=== PATIENT | male | born 1960 | race Caucasian/White ===

== ENCOUNTER 2025-03-07 07:49 | Emergency (ER) | payer MEDICAID ==
[~2025-03-07] VITALS: Ht 180.3 cm; Wt 79.0 kg
[2025-03-07 07:53] VITALS: TEMP 97.7
[2025-03-07 08:09] LABS: BASOPHILS # (AUTO) 0.1 X10'3 (0-0.2); BASOPHILS % (AUTO) 0.9 % (0-1); EOSINOPHILS # (AUTO) 0.2 X10'3 (0-0.9); HEMATOCRIT 30.9 % (42.0-52.0); LYMPHOCYTES # (AUTO) 1.2 X10'3 (1.1-4.8); LYMPHOCYTES % (AUTO) 18.7 % (21-51); MEAN CORPUSCULAR HEMOGLOBIN 27.9 PG (27.0-31.0); MEAN CORPUSCULAR HGB CONC 32.4 g/dL (33.0-36.5); MEAN CORPUSCULAR VOLUME 86.1 FL (78-98); MEAN PLATELET VOLUME 7.6 FL (7.4-10.4); MONOCYTES # (AUTO) 0.6 X10'3 (0-0.9); MONOCYTES % (AUTO) 10.2 % (2-12); NEUTROPHILS # (AUTO) 4.1 X10'3 (1.8-7.7); NEUTROPHILS % (AUTO) 66.2 % (42-75); PLATELET COUNT 372 X10'3 (140-440); RED BLOOD COUNT 3.59 X10'6 (4.70-6.10); RED CELL DISTRIBUTION WIDTH 13.5 % (11.5-14.5); WHITE BLOOD COUNT 6.2 X10'3 (4.5-11.0)
[2025-03-07 08:22] LABS: ALANINE AMINOTRANSFERASE 18 U/L (12-78); ALBUMIN 3.5 G/DL (3.4-5.0); ALKALINE PHOSPHATASE 114 IU/L (46-116); ANION GAP 7 (8-16); ASPARTATE AMINO TRANSFERASE 13 U/L (10-37); BILIRUBIN,TOTAL 0.4 MG/DL (0.1-1.0); BLOOD UREA NITROGEN 13 MG/DL (7-18); BUN/CREATININE RATIO 12.9 (10.0-20.0); CALCIUM 8.6 MG/DL (8.5-10.1); CHLORIDE 104 MMOL/L (99-107); CREATININE 1.01 MG/DL (0.60-1.10); GLUCOSE 92 MG/DL (70-104); POTASSIUM 3.9 MMOL/L (3.5-5.1); SODIUM 140 MMOL/L (135-145); TOTAL CARBON DIOXIDE 29.3 MMOL/L (24-32); eCRCL 81 ML/MIN; eGFR 75 ML/MIN
[2025-03-07 08:30] LABS: PRO BRAIN NATRIURETIC PEPTIDE 1894 PG/ML (0-125)
[2025-03-07 08:49] VITALS: BP 98/64; PULSE 63; RESP 17; O2SAT 99
[2025-03-07] MEDS: methylnaltrexone br 12mg/0.6ml inj***SubQ only SQ ONE (08:49)
== END 2025-03-07 09:03 | disposition home or self-care (01) ==
LOC: ER 07:51
DX: R55 Syncope and collapse (principal); K59.00 Constipation, unspecified; Z88.0 Allergy status to penicillin
CPT/HCPCS: 36415; 71045; 80053; 83880; 84484; 85025; 93005; 96372; 99285; J2212; 94760

== ENCOUNTER 2025-03-13 11:58 | Emergency (ER) | payer MEDICAID ==
[~2025-03-13] VITALS: Ht 180.3 cm; Wt 79.5 kg
[2025-03-13] MEDS: methylnaltrexone br 12mg/0.6ml inj***SubQ only SQ ONE (17:31)
[2025-03-13] MEDS ORDERED: GOLYS PO (17:47)
[2025-03-13 17:53] VITALS: BP 106/68; PULSE 62; RESP 16; TEMP 98.1; O2SAT 99
== END 2025-03-13 17:55 | disposition home or self-care (01) ==
LOC: ER 11:58
DX: K59.03 Drug induced constipation (principal); T40.2X5A Adverse effect of other opioids, initial encounter; Z88.0 Allergy status to penicillin; Y92.89 Other specified places as the place of occurrence of the external cause
CPT/HCPCS: 74018; 96372; 99283; J2212

== ENCOUNTER 2025-06-11 12:36 | Emergency (ER) | payer MEDICAID ==
[~2025-06-11] VITALS: Ht 180.3 cm; Wt 63.2 kg
[~2025-06-11 12:36] MED LIST: GOLYS PO
[2025-06-11 12:39] VITALS: TEMP 98.2
--- NOTE | 2025-06-11 12:46 | ELECTROCARDIOGRAPH REPORT ---
[facility] Test Date: 2025-06-11 Test Time: 12:43:55 Pat Name: BRETT WASHBURN Department: EMERGENCY ROOM Room: Gender: M General Office Associate: : 1960 Requested By: BARRIE CARRIZALES Order Number: [id number] Reading MD: Dr. Sharif Harding Measurements Intervals [place] Rate: 79 P: 42 [place]: 173 QRS: 25 QRSD: 99 T: 41 QT: 377 QTc: 433 Interpretive Statements Sinus rhythm Probable left atrial enlargement Borderline ST elevation, anterior leads Electronically Signed On 06-12-2025 18:21:[address] Sharif Harding Please click the below link to view image of tracing.
[2025-06-11 12:58] LABS: MEAN PLATELET VOLUME 8.6 FL (7.4-10.4); RED CELL DISTRIBUTION WIDTH 16.4 % (11.5-14.5)
--- NOTE | 2025-06-11 13:03 | RADIOLOGY REPORT ---
CHEST RADIOGRAPH Indication: CP Technique: Single frontal view of the chest was obtained Comparison: DI CHEST,SINGLE VIEW on DOS: 03/07/25 FINDINGS: Lines and Tubes: None Lungs: No focal consolidation. Pleura: No effusion. No pneumothorax. Cardiomediastinal contours: Unremarkable Bones: No acute osseous abnormality. IMPRESSION: No acute cardiopulmonary disease.
[2025-06-11 13:31] LABS: CREATININE 0.92 MG/DL (0.60-1.10); PRO BRAIN NATRIURETIC PEPTIDE 392 PG/ML (0-125); TOTAL CARBON DIOXIDE 27.0 MMOL/L (24-32); eCRCL 74 ML/MIN; eGFR 83 ML/MIN
--- NOTE | 2025-06-11 14:18 | Physician Documentation ---
History of Present Illness ~ General Chief Complaint: See Chief Complaint Stated Complaint: HEART VALVE COMPLICATIONS PER DOC Time Seen by MD: 13:37 Primary Medical Doctor: JAYCOB CEDENO Mode of Arrival: POV History of Present Illness Initial Comments 64-year-old male presents to the ED requesting to have a low dose CT done per his provider at [facility]. He states that he had aneurysm repaired. He also adds that he was given notice from [facility] the not the patient has a leaky aortic valve. Patient is currently asymptomatic. Medication Reconciliation Allergies: Coded Allergies: Penicillins (Verified Allergy, Unknown, 06/11/25) Scheduled Peg 3350/Na Sulf,Bicarb,Cl/KCl (Golytely Solution), 0 PO UD Review of Systems All Other Systems at this time: Reviewed and Negative ROS As stated above in the HPI, otherwise all systems are reviewed and negative. Physical Exam Physical Exam Vital Signs: Temperature: 98.2, Source: Temporal, Heart Rate: 69, Respiratory Rate: 18, BP: 147/86, Pulse Oximetry: 99, Weight: 63.200 Progress Results/Orders Results/Orders Vital Signs 06/11/25 06/11/25 06/11/25 12:39 13:39 13:39 Temp 98.2 Pulse 88 69 Resp 16 18 18 B/P (MAP) 151/103 147/86 (106) Pulse Ox 99 99 Laboratory Tests Test 06/11/25 12:46 06/11/25 14:38 White Blood Count 8.5 Red Blood Count 4.87 Hemoglobin 13.3 L Hematocrit 40.2 L Mean Corpuscular Volume 82.6 Mean Corpuscular Hemoglobin 27.4 Mean Corpuscular Hemoglobin Concent 33.1 Red Cell Distribution Width 16.4 H Platelet Count 232 Mean Platelet Volume 8.6 Neutrophils (%) (Auto) 78.0 H Lymphocytes (%) (Auto) 11.4 L Monocytes (%) (Auto) 7.5 Eosinophils (%) (Auto) 2.4 Basophils (%) (Auto) 0.7 Neutrophils # (Auto) 6.6 Lymphocytes # (Auto) 1.0 L Monocytes # (Auto) 0.6 Eosinophils # (Auto) 0.2 Basophils # (Auto) 0.1 CBC Comment Sodium Level 134 L Potassium Level 4.0 Chloride Level 100 Carbon Dioxide Level 27.0 Anion Gap 7 L Blood Urea Nitrogen 15 Creatinine 0.92 Estimated GFR/1.73 m2 83 BUN/Creatinine Ratio 16.3 Glucose Level 98 Calcium Level 8.5 Troponin I High Sensitivity 9 Pro-B-Type Natriuretic Peptide 392 H Albumin 4.0 Chemistry Comments Medical Decision Making Findings I was initially confused on why the patient was here as he is asymptomatic and was requesting a low-dose CT screening for lung cancer. I was able to contact his provider at [facility] which informed me who the that the patient has never been checked in however he does have a significant history and did have his aorta replaced. Wanted him referred to Cardiology for mild mitral regurgitation Considering the patient remains asymptomatic I am going to discharge him for outpatient evaluation Departure Disposition: HOME / SELF CARE / HOMELESS Impression: Primary Impression: General medical exam Condition: Stable Referrals: NO PRIMARY CARE PROVIDER (PCP) Signature Scribe Signature: u Attestation: Scribed for Luis Carlos [employer] Specialist by Luis Carlos Desir NP . 06/11/25 14:51 LUIS CARLOS PAREDES NP Jun 11, 2025 14:18
[2025-06-11 14:55] VITALS: BP 127/82; PULSE 64; RESP 18; O2SAT 100
== END 2025-06-11 15:03 | disposition home or self-care (01) ==
LOC: ER 12:37
DX: Z00.00 Encounter for general adult medical examination without abnormal findings (principal); Z88.0 Allergy status to penicillin; Z79.899 Other long term (current) drug therapy
CPT/HCPCS: 36415; 71045; 80048; 83880; 84484; 85025; 93005; 99285

== ENCOUNTER 2025-09-17 21:18 | Emergency (ER) | payer MEDICAID ==
[~2025-09-17] VITALS: Ht 180.3 cm; Wt 79.0 kg
[2025-09-17 21:55] LABS: MEAN PLATELET VOLUME 8.3 FL (7.4-10.4); RED CELL DISTRIBUTION WIDTH 15.2 % (11.5-14.5)
[2025-09-17 22:17] LABS: CREATININE 1.77 MG/DL (0.60-1.10); PRO BRAIN NATRIURETIC PEPTIDE 203 PG/ML (0-125); TOTAL CARBON DIOXIDE 29.5 MMOL/L (24-32); eCRCL 46 ML/MIN; eGFR 39 ML/MIN
--- NOTE | 2025-09-17 22:19 | RADIOLOGY REPORT ---
CHEST RADIOGRAPH Indication: CP Technique: 2 frontal views Comparison: DI CHEST,SINGLE VIEW on DOS: 06/11/25, DI CHEST,SINGLE VIEW on DOS: 03/07/25 FINDINGS: Lines and Tubes: None. Lungs/Pleura: No focal consolidation, pleural effusion or pneumothorax. Scattered nodules which are likely calcified are redemonstrated. Cardiomediastinum: Normal heart size with aortic valve replacement. Other: No acute osseous abnormality. Cervical spine and sternotomy hardware. IMPRESSION: 1. No acute cardiopulmonary abnormality.
[2025-09-17] MEDS: normal saline 1000ml 1,000 ML IV ONE (22:20)
--- NOTE | 2025-09-17 22:27 | Physician Documentation ---
History of Present Illness ~ Chief Complaint: Syncope Stated Complaint: FALL Time Seen by MD: 22:19 Primary Medical Doctor: JAYCOB CEDENO [facility] Patient presents to the emergency room for evaluation of syncope. Patient states he has been feeling dizzy and lightheaded lately however today after going up some stairs he had this feeling thought he has good then began walking and completely syncopized smacking the front of his left forehead. He did not know that he actually syncopized and hit his forehead until he got laying down in his bed and started feeling his head. He is not on blood thinners. History of aortic aneurysm repair but denies history of heart disease. Denies any chest pain or palpitations. No other injuries reported. Patient is hypotensive. 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 Medication Reconciliation Allergies: Coded Allergies: Penicillins (Verified Allergy, Unknown, 06/11/25) Scheduled Peg 3350/Na Sulf,Bicarb,Cl/KCl (Golytely Solution), 0 PO UD Review of Systems ROS All review of systems negative except as per HPI Physical Exam Vital Signs: Temperature: 98.2, Source: Temporal, Heart Rate: 73, Respiratory Rate: 16, BP: 89/59, Pulse Oximetry: 100, Weight: 79.000 Oxygen Flow Rate: 0 Physical Exam General: Patient is awake, alert, oriented x4 in no acute distress. Head: Normocephalic with 8 cm x 8 cm goose egg to left forehead with mild abrasion Eyes: Conjunctival normal. EOMI. PERRL. ENT: Mucous membranes moist. Neck: Supple, trachea is midline. In C-collar Chest: Clear to auscultation bilaterally without rales, rhonchi, or wheezes. There is no accessory muscle use or retractions. Cardiac: RRR without murmurs, gallops, or rubs. Abd: Soft, nondistended, nontender, with normoactive bowel sounds. No guarding, rebound, or rigidity. Progress Results/Orders Results/Orders Orders - MOHIT YOUNG MD Chest,Single View (09/17/25 22:08) Monitor (09/17/25 21:34) Saline Lock (09/17/25 21:34) Oxygen (09/17/25 21:34) Electrocardiogram (09/17/25 21:34) Hs Troponin I W Calculations (09/18/25 00:34) Ct Cervical Spine (09/17/25 22:18) Ct Head (09/17/25 22:18) Completed Orders - MOHIT YOUNG MD Chest,Single View (09/17/25 22:08) Cbc/Diff (09/17/25 21:34) BMP (09/17/25 21:34) PBNP (09/17/25 21:34) Hs Troponin I W Calculations (09/17/25 21:34) Hs Troponin I W Calculations (09/17/25 23:34) Normal Saline 1000ml (0.9% Sodium Chlori (09/17/25 22:20) Ct Cervical Spine (09/17/25 22:18) Ct Head (09/17/25 22:18) Procalcitonin (09/17/25 22:18) Medications Received in ER Medications (Trade) Dose Ordered Sig/Luis Route PRN Reason Start Time Stop Time Status Last Admin Dose Admin Sodium Chloride 1,000 ml @ 1,000 mls/hr ONCE ONCE IV 09/17/25 22:20 09/17/25 23:19 DC 09/17/25 22:20 1,000 MLS/HR Vital Signs 09/17/25 22:14 Temp 98.2 Pulse 73 Resp 16 B/P (MAP) 89/59 Pulse Ox 100 O2 Flow Rate 0 Laboratory Tests Test 09/17/25 21:45 09/17/25 23:44 White Blood Count 10.0 Red Blood Count 4.48 L Hemoglobin 13.2 L Hematocrit 39.4 L Mean Corpuscular Volume 87.8 Mean Corpuscular Hemoglobin 29.4 Mean Corpuscular Hemoglobin Concent 33.5 Red Cell Distribution Width 15.2 H Platelet Count 224 Mean Platelet Volume 8.3 Neutrophils (%) (Auto) 77.8 H Lymphocytes (%) (Auto) 13.2 L Monocytes (%) (Auto) 7.6 Eosinophils (%) (Auto) 1.0 Basophils (%) (Auto) 0.4 Neutrophils # (Auto) 7.8 H Lymphocytes # (Auto) 1.3 Monocytes # (Auto) 0.8 Eosinophils # (Auto) 0.1 Basophils # (Auto) 0.0 CBC Comment Sodium Level 138 Potassium Level 4.0 Chloride Level 101 Carbon Dioxide Level 29.5 Anion Gap 8 Blood Urea Nitrogen 19 H Creatinine 1.77 H Estimated GFR/1.73 m2 39 BUN/Creatinine Ratio 10.7 Glucose Level 152 H Calcium Level 8.8 Troponin I High Sensitivity 6 7 Pro-B-Type Natriuretic Peptide 203 H Albumin 3.8 Procalcitonin < 0.05 Chemistry Comments Troponin I High Sens Percent Delta 16 Troponin I Hi Sens Absolute Change 1 EKG/XRAY/CT/US/VASC/MRI EKG : Additional Comment EKG interpreted by myself shows time of 12/10/2024, rate 69, sinus rhythm, left axis deviation, no ST changes Chest X-Ray : Additional Comments Exam: CHEST,SINGLE VIEW CHEST RADIOGRAPH Indication: CP Technique: 2 frontal views Comparison: DI CHEST,SINGLE VIEW on DOS: 06/11/25, DI CHEST,SINGLE VIEW on DOS: 03/07/25 FINDINGS: Lines and Tubes: None. Lungs/Pleura: No focal consolidation, pleural effusion or pneumothorax. Scattered nodules which are likely calcified are redemonstrated. Cardiomediastinum: Normal heart size with aortic valve replacement. Other: No acute osseous abnormality. Cervical spine and sternotomy hardware. IMPRESSION: 1. No acute cardiopulmonary abnormality. Medical Decision Making Additional information obtaine: N/A Findings Patient presented to the emergency room with syncopal episode. Differentials include but are not limited to cardiac arrhythmia, vasovagal, medication reaction, intracranial bleed, cervical fracture therefore emergent labs and imaging indicated. Labs and imaging reassuring. Patient's hypotension resolved with fluids. I do believe that has an element of dehydration in combination of his antihypertensives. He has passed the road test. Offered admission however he would like to go. No chest pain or palpitations. Symptoms has been going on for a month. I have instructed him stop his metoprolol and losartan until he is able to talk to his doctor tomorrow. ER precautions discussed. Differential Dx:Considerations: Include: anemia, CVA, cerebral occlusion, cerebral thrombosis, dehydration, dysrhythmia, electrolyte disorder, encephalopathy, hypoglycemia, hypovolemia, labyrinthitis, Meniere's disease, myocardial infarction, pulmonary embolus, TIA, vasovagal, VBI, vertigo central, vertigo peripheral, vestibular neuronitis, other Departure Disposition: HOME / SELF CARE / HOMELESS Impression: Primary Impression: Syncope Condition: Improved Discharge Instructions: Dehydration, Elderly, [id number], Syncope, Adult Additional Instructions: Stop your metoprolol and losartan until you are able to talk to your doctor regarding your blood pressure is causing you to pass out. Call him tomorrow 1st thing. Return for repeat symptoms. Referrals: NO PRIMARY CARE PROVIDER (PCP) Signature Scribe Signature: No scribe Attestation: The note accurately reflects work and decisions made by me.Mohit Young MD 09/18/25 00:32 MOHIT YOUNG MD Sep 17, 2025 22:27
--- NOTE | 2025-09-17 23:15 | RADIOLOGY REPORT ---
CLINICAL HISTORY: fall TECHNIQUE: Helical scanning was performed of the head from the skull base to the vertex. Multiplanar reconstructions were performed. This exam was performed according to our departmental dose optimization program. Up-to-date CT equipment and radiation dose reduction techniques are utilized as appropriate. CTDI 66 DLP 1335 COMPARISON: None FINDINGS: There is no evidence for acute intracranial hemorrhage, acute ischemic changes, mass, mass effect, or extra-axial fluid collection. There is no hydrocephalus or midline shift. There is no effacement of the cerebral sulci and basal subarachnoid cisterns. The bella-white matter differentiation is well maintained. There is severe left frontal scalp soft tissue swelling / hematoma formation. No underlying skull fracture is seen. The imaged paranasal sinuses are clear. IMPRESSION: Severe left frontal scalp soft tissue swelling / hematoma formation. No underlying acute intracranial abnormality seen.
--- NOTE | 2025-09-17 23:21 | RADIOLOGY REPORT ---
EXAM: CT CT CERVICAL SPINE HISTORY: fall COMPARISON: None CTDIvol 24 mGy, DLP 673 mGy*cm. TECHNIQUE: Multiple axial CT images of the spine were obtained using bone algorithm. Axial and coronal reformatting was done. Bone and soft tissue windows were reviewed. FINDINGS: No evidence of vertebral fracture or compresison deformity. Remote appearing anterior plate-screw fixation of C5-C7 without evidence of hardware complication. Mature osseous fusion of C5-C6, and no effusion no C6-C7. Straightening of normal lordotic curvature without listhesis. The craniocervical junction is intact with degenerative change. [id number] spondylosis of the nonsurgical levels. No acute finding of the paraspinal soft tissues or upper chest. IMPRESSION: 1. No acute osseous abnormality or hardware complication of the cervical spine.
[2025-09-18 00:50] VITALS: BP 107/69
[2025-09-18] MEDS: bacitracin 15gm ointment TP ONE (00:53)
[2025-09-18 00:59] VITALS: PULSE 63; RESP 16; TEMP 98.2; O2SAT 96
--- NOTE | 2025-09-18 05:21 | ELECTROCARDIOGRAPH REPORT ---
[facility] Test Date: 2025-09-17 Test Time: 21:25:29 Pat Name: BRETT WASHBURN Department: EMERGENCY ROOM Room: Gender: M Senior Assistant Manager: NARENDRA : 1960 Requested By: GENOVEVA DAVISON Order Number: [id number] Reading MD: Dr. Sharif Harding Measurements Intervals [place] Rate: 69 P: 52 [place]: 181 QRS: 13 QRSD: 113 T: 35 QT: 399 QTc: 428 Interpretive Statements Sinus rhythm Borderline intraventricular conduction delay Borderline ST elevation, anterior leads Electronically Signed On 09-24-2025 20:45:[address] Sharif Harding Please click the below link to view image of tracing.
== END 2025-09-18 01:01 | disposition home or self-care (01) ==
LOC: ER 21:19
DX: S00.81XA Abrasion of other part of head, initial encounter (principal); R55 Syncope and collapse; R42 Dizziness and giddiness; Z88.0 Allergy status to penicillin; Z86.79 Personal history of other diseases of the circulatory system; Z79.899 Other long term (current) drug therapy; X58.XXXA Exposure to other specified factors, initial encounter; Y93.89 Activity, other specified; Y92.89 Other specified places as the place of occurrence of the external cause; Y99.8 Other external cause status
CPT/HCPCS: 36415; 70450; 71045; 72125; 80048; 83880; 84145; 84484; 85025; 93005; 96360; 99285; J7030; 99284